=== PATIENT | female | born 1955 | race Hispanic/Latino ===

== ENCOUNTER 2018-12-15 09:48 | Inpatient (IN) | payer BC ==
[2018-12-15 10:17] LABS: Hemoglobin 8.5 g/dL (12.0-16.0); Mean Corpuscular HGB CONC 30.6 g/dL (32.0-36.0); Mean Corpuscular Hemoglobin 22.4 pg (27.0-31.0); Platelet Count 343 thou/uL (130-400); RBC Distribution Width 14.4 % (11.5-14.5); Red Blood Cell (RBC) Count 3.81 mill/uL (4.20-5.40); White Blood Cell (WBC) Count 8.3 thou/uL (4.8-10.8)
[2018-12-15 10:18] LABS: #Basophils 0.1 thou/uL (0.0-0.2); #Lymphocytes 2.2 thou/uL (1.20-3.40); #Monocytes 0.4 thou/uL (0.11-0.59); #Neutrophils 5.6 thou/uL (1.40-6.50); %Basophils 0.9 % (0.0-1.0); %Eosinophils 0.4 % (0.0-10.0); %Lymphocytes 26.6 % (21.0-51.0); %Monocytes 5.2 % (0.0-10.0); %Neutrophils 66.9 % (42.0-75.0)
[2018-12-15 10:41] LABS: ALT (SGPT) 11 U/L (8-55); AST (SGOT) 13 U/L (5-34); Albumin 3.7 g/dL (3.4-4.8); Alkaline Phosphatase 74 U/L (40-150); Anion Gap 7 mmol/L (10-20); BUN (Urea Nitrogen) 31 mg/dL (9.8-20.1); Bilirubin, Total 0.2 mg/dL (0.2-1.2); Calc. Creatinine Clearance 0 mL/min (70-130); Calcium 9.5 mg/dL (7.8-10.44); Carbon Dioxide 28 mmol/L (23-31); Chloride 108 mmol/L (98-107); Estimated GFR-MDRD 82; Globulin 3.3 g/dL (2.4-3.5); Glucose 182 mg/dL (80-115); Potassium 4.1 mmol/L (3.5-5.1); Sodium 139 mmol/L (136-145)
[2018-12-15 10:53] LABS: Hypochromia SLIGHT = 6-15 cells (100X) (0-5/hpf); MDiff Complete? YES; Microcytosis SLIGHT = 6-15 cells (100X) (0-5/hpf); Polychromasia SLIGHT = 2-3 cells (100X) (0-2/hpf)
[2018-12-15] MEDS ORDERED: Pantoprazole 40 MG VIAL ONE (11:13)
[2018-12-15] MEDS ORDERED: Pantoprazole 40 MG VIAL IVPB SCH (11:30)
[2018-12-15 11:32] LABS: INR-International Normal Ratio 1.1; PTT 28.6 SEC (22.9-36.1); Prothrombin Time 14.6 SEC (12.0-14.7)
[2018-12-15] MEDS ORDERED: Pantoprazole 80 MG in Sodium Chloride 0.9% 100 ML IVPB SCH (13:30)
[2018-12-15] MEDS ORDERED: Zolpidem Tartrate 5 MG TAB PO PRN (13:34)
[2018-12-15] MEDS ORDERED: Ondansetron ODT 4 MG TAB PO PRN (13:34)
[2018-12-15] MEDS ORDERED: Acetaminophen 325 MG TAB PO PRN (13:34)
[2018-12-15 14:12] VITALS: BMI 33.4
--- NOTE | 2018-12-15 15:07 | HP ---
The patient of Dr. Escoto. HISTORY OF PRESENT ILLNESS: The patient had nausea and vomiting this morning, went to her doctor's office. She was vomiting dark material, was having black stools. She was sent to the emergency room. She has continued to have black stools. She had no abdominal pain until this morning and it was severe for a while, but is now feeling better. She is weak, lightheaded. She has been taking no NSAIDs. She has had no previous episodes. PAST MEDICAL HISTORY: Pertinent only for hypertension and elevated cholesterol. CURRENT MEDICATIONS: 1. Losartan 50 mg a day. 2. Atorvastatin 20 mg a day. 3. Atenolol 100 mg a day. ALLERGIES: NO KNOWN DRUG ALLERGIES. PAST SURGICAL HISTORY: 1. Right knee surgery. 2. Bilateral bunionectomy. FAMILY HISTORY: No GI bleeding. Has a brother and a son with diabetes, and her mother had hypertension. SOCIAL HISTORY: . Full code status. Two daughters at bedside are next of kin. Never smoked. Does not drink any alcohol. REVIEW OF SYSTEMS: GENERAL: No fever, chills, sweats, or headache. EYES: No double vision, blurred vision, or flashing light. EARS, NOSE, AND THROAT: No ear pain or drainage. No nasal bleeding. No trouble swallowing. CARDIAC: She has had a little aching in her chest with this, nonpleuritic. No pressure or chest pain. No orthopnea. No paroxysmal nocturnal dyspnea. RESPIRATIONS: No cough, wheezing, or asthma. GASTROINTESTINAL: See present illness. GENITOURINARY: No hematuria, dysuria, or nocturia. MUSCULOSKELETAL: She has aches and pains in her joints of her legs. She has taken NSAIDs in the past, but none any much. She has been taking Tylenol instead. She has had no swelling in her legs. NEUROLOGICAL: No strokes, seizures, or focal weakness. PSYCHIATRIC: No anxiety or depression. SKIN: No bruises, bleeding, or rash. HEME/LYMPH: No tender or swollen lymph nodes in the axilla, inguinal, or cervical area. PSYCHIATRIC: She is alert, cooperative, pleasant, Singaporean-speaking lady. She has several children at bedside do interpret for. PHYSICAL EXAMINATION: VITAL SIGNS: Blood pressure 98/67, pulse 66, respirations 18, temperature 97.6. HEAD, EYES, EARS, NOSE, AND THROAT: Reveal pupils are equal, round, and reactive. Extraocular movements are intact. Sclerae are white. Tympanic membranes, clear. Nose, clear. Oral mucous membranes are wet. Dental hygiene is good. NECK: No jugular venous distention, adenopathy, or thyromegaly. CHEST: Clear to auscultation and percussion. HEART: Regular rate and rhythm. First and second heart sounds are clear. There are no murmurs or gallops. ABDOMEN: Soft. Bowel sounds are normal. There is no hepatosplenomegaly. No tenderness. No masses. No bruits. EXTREMITIES: Reveal no cyanosis, clubbing, or edema. PULSES: Carotid, radial, femoral, and dorsalis pedis pulses intact and symmetric. SKIN: Warm and dry without bruises or rash. HEME/LYMPH: Reveals no tender or swollen lymph nodes in the axilla, inguinal, or cervical area. DIAGNOSTIC DATA: Chest x-ray has not been done, we will order one. No EKG available, we will order one. LABORATORY DATA: The emesis is positive for occult blood. Hemoglobin is 8.5 with microcytic, microchromic indices; platelet count 343,000; white count 8.3. INR is 1.1. Comprehensive metabolic profile shows blood sugar of 132, BUN of 31, creatinine 0.7, CO2 of 28, chloride 108, potassium 4.1, sodium 139. Liver function tests normal. ASSESSMENT AND PLAN: 1. Anemia, acute blood loss. 2. Upper GI bleeding. 3. Hypertension. 4. Dyslipidemia. 5. Possible iron deficiency. The patient will be started on IV fluids, made n.p.o., received Protonix 40 mg IV q.12. Gastroenterology has been called for probable upper GI endoscopy. We will hold antihypertensives for now. Serial hemoglobin will be done. She will be transfused for hemoglobin less than 7. Job ID: [id number]
[2018-12-15] MEDS: Sodium Chloride 0.9% 1,000 ML IV SCH ×2 (15:40→19:51)
[2018-12-15] MEDS ORDERED: Lidocaine 1% PF 5 ML VIAL ONE (16:15)
[2018-12-15] MEDS ORDERED: PROPOFOL 200 MG/20 ML VIAL ONE (16:15)
--- NOTE | 2018-12-15 16:58 | CON ---
DATE OF CONSULTATION: 12/15/2018 REASON FOR CONSULTATION: Upper GI bleed. HISTORY OF PRESENT ILLNESS: Ms. Fry is a 63-year-old female, who is generally healthy other than having high blood pressure, presented to the ER this morning after having coffee-grounds emesis. She was on a way to baby-sit her granddaughter, when she felt ill with subsequent vomiting of dark black material and coffee-ground. She became lightheaded at that time. She presented to her primary care physician's office, they subsequently directed her to the emergency room. While on route to the ER, she did have one more episode of coffee-ground emesis. On further questioning, she had a bout of melenic stools yesterday and this morning. In the ER, she did have epigastric pain, but has since resolved. Currently, she is stable without any nausea, vomiting, or abdominal pain. She denies having had any previous peptic ulcer disease or history of upper GI bleed. Reportedly, she had an upper endoscopy done 3 to 4 years ago according to her daughters. Her GI review of system was otherwise unremarkable. Up until this event, her appetite had been normal without any trouble eating. There is no nausea, vomiting, abdominal pain, or altered bowel function. PAST MEDICAL HISTORY: 1. Hypertension. 2. Hyperlipidemia. 3. Knee surgery. ALLERGIES: NO KNOWN DRUG ALLERGIES. MEDICATIONS: Include atorvastatin, losartan, and atenolol. SOCIAL HISTORY: The patient lives with her son. Has no tobacco or alcohol usage. FAMILY HISTORY: Negative for any known GI problem, liver disease, or GI malignancy. REVIEW OF SYSTEMS: A 10-point review of systems did not show any other pertinent positives or negatives. PHYSICAL EXAMINATION: VITAL SIGNS: Her temperature is 97.4, blood pressure 107/73, and pulse 99. GENERAL: She is alert, in no distress. HEENT: Shows anicteric sclerae. Oropharynx is clear and moist. NECK: Supple. CV: Shows normal S1 and S2. Regular rate and rhythm. CHEST: Shows a breath sounds. ABDOMEN: Mildly protuberant, but no distention or tympany. She has active bowel sounds. No tenderness. EXTREMITIES: Shows no edema. LABORATORY DATA: WBCs 8.3, hemoglobin 8.5, hematocrit 27.9, platelet count of 343. Electrolytes within normal range. Creatinine 0.72, BUN of 31. INR is 1.1, PTT 28.6. ASSESSMENT: 1. Likely upper gastrointestinal bleed with presenting symptoms of coffee-ground emesis and melenic stool over the last 24 hours. Currently, she is hemodynamically stable with normal vitals. Blood count does show anemia. However, she does have microcytosis suggesting possibility of a chronic component. 2. Anemia, likely of acute blood loss. RECOMMENDATIONS: 1. Upper endoscopy to elucidate source of bleeding control if necessary. 2. Monitor and trend her blood count trend, transfuse if hemoglobin less than 7. 3. Further recommendation to follow pending above findings. Job ID: [id number]
[2018-12-15] MEDS ORDERED: Promethazine HCl 25 MG/ML VIAL SLOW IVP PRN (17:58)
[2018-12-15] MEDS ORDERED: Promethazine HCl 25 MG/ML VIAL IM PRN (17:58)
[2018-12-15] MEDS ORDERED: Ondansetron HCl/PF 4 MG/2 ML Vial IVP PRN (17:58)
--- NOTE | 2018-12-15 18:38 | OP ---
DATE OF PROCEDURE: 12/15/2018 PROCEDURE: Esophagogastroduodenoscopy. PREMEDICATION: Given by Anesthesiology Department. PRE PROCEDURE DIAGNOSES: Coffee-grounds emesis and melena. POSTPROCEDURE DIAGNOSES: 1. Large 10 cm length hiatal hernia. 2. Markedly erythematous gastric lining at hernia waist, otherwise normal upper endoscopy. 3. No source of bleeding identified. DESCRIPTION OF PROCEDURE: Written consents were obtained prior to procedure. After adequate sedation, forward-viewing endoscope was advanced down the hypopharynx under direct vision to the third portion of duodenum. The duodenum including the bulb appeared normal. The pylorus is patent. The gastric body appeared normal. Retroflexion showed a large hiatal hernia. The gastric narrowing appeared at 40 cm from the incisors. The GE junction including Z-line was located at 30 cm from the incisors. Within the stomach on retroflexion, there was marked erythema involving the mucosa straddling the hiatal hernia ways. Close inspection did not show any ulcerations or mucosal abnormality. The hernia sac itself appeared normal. GE junction showed variable Z-line, but no other abnormality. The lower, mid, and upper esophagus appeared normal. Blood was not encountered during this exam. No focal source of bleeding was identified. ASSESSMENT: 1. 10 cm length hiatal hernia with gastric ways at 40 cm and GE junction at 30 cm from the incisors. 2. Mucosal erythema at the hiatal hernia waist. 3. Otherwise normal upper endoscopy without any source of bleeding. RECOMMENDATIONS: 1. Advance diet. 2. Pantoprazole 40 mg p.o. daily. 3. Outpatient colonoscopy given her microcytic component to her anemia. Job ID: [id number]
[2018-12-15] MEDS: Pantoprazole 40 MG VIAL IVP SCH (19:52)
[2018-12-16] MEDS: Sodium Chloride 0.9% 1,000 ML IV SCH ×3 (05:24→14:37)
[2018-12-16 07:27] LABS: Hemoglobin 6.8 g/dL (12.0-16.0); Mean Corpuscular HGB CONC 31.4 g/dL (32.0-36.0); Mean Corpuscular Hemoglobin 22.4 pg (27.0-31.0); Mean Corpuscular Volume 71.3 fL (78.0-98.0); Mean Platelet Volume 9.1 fL (7.4-10.4); Platelet Count 273 thou/uL (130-400); RBC Distribution Width 14.5 % (11.5-14.5); Red Blood Cell (RBC) Count 3.02 mill/uL (4.20-5.40); White Blood Cell (WBC) Count 5.4 thou/uL (4.8-10.8)
[2018-12-16 07:43] LABS: Anion Gap 10 mmol/L (10-20); BUN (Urea Nitrogen) 15 mg/dL (9.8-20.1); Calc. Creatinine Clearance 104 mL/min (70-130); Calcium 8.3 mg/dL (7.8-10.44); Carbon Dioxide 24 mmol/L (23-31); Chloride 110 mmol/L (98-107); Estimated GFR-MDRD Greater than 90; Glucose 108 mg/dL (80-115); Potassium 3.6 mmol/L (3.5-5.1); Sodium 140 mmol/L (136-145)
[2018-12-16] MEDS: Pantoprazole 40 MG VIAL IVP SCH ×2 (08:06→20:17)
--- NOTE | 2018-12-16 10:04 | PDOC.PN ---
- Subjective Encounter Start Date: 12/16/18 Encounter Start Time: 10:02 Patient seen and examined for GI bleeding. No new hematemesis/Melena. No new complaints. No overnight events - Objective Resuscitation Status - Order Detail: 12/15/18 13:31 Resuscitation Status Routine Resuscitation Status: FULL: Full Resuscitation MAR Reviewed: Yes Vital Signs & Weight: Vital Signs (12 hours) Temp Pulse Resp BP Pulse Ox 12/16/18 07:29 98.7 F 84 16 137/78 98 Weight Weight 159 lb 12.8 oz I&O: 12/15/18 12/16/18 12/17/18 06:59 06:59 06:59 Intake Total 1331 0 Balance 1331 0 Result Diagrams: 12/16/18 06:36 12/16/18 06:36 Phys Exam - Physical Examination Constitutional: NAD Respiratory: no wheezing, no rhonchi Cardiovascular: RRR, no rub Gastrointestinal: soft, non-tender, positive bowel sounds Musculoskeletal: no edema Neurological: moves all 4 limbs Dx/Plan - Plan DVT proph w/SCDs IMPRESSION UGI bleeding Acute blood loss Anemia HTN HLD Obesity BMI 33.4 Hiatal Hernia GERD PLAN: Cont IV PPI s/p EGD Transfuse 1 unit PRBC Resume home meds once confirmed AM labs Check iron profile Reduce IV fluid Review of Systems - Review of Systems Respiratory: negative: Cough, Dry, Shortness of Breath, Hemoptysis, SOB with Excertion, Pleuritic Pain, Sputum, Wheezing Cardiovascular: negative: chest pain, palpitations, orthopnea, paroxysmal nocturnal dyspnea, edema, light headedness, other - Medications/Allergies Allergies/Adverse Reactions: Allergies Allergy/AdvReac Type Severity Reaction Status Date / Time No Known Allergies Allergy Verified 12/15/18 14:16 Medications: Current Medications Acetaminophen (Tylenol) 650 mg PO Q4H PRN PRN Reason: Headache/Fever/Mild Pain (1-3) Sodium Chloride (Normal Saline 0.9%) 1,000 mls @ 50 mls/hr IV .Q20H REFUGIO Ondansetron HCl (Zofran Odt) 4 mg PO Q6H PRN PRN Reason: Nausea/Vomiting Pantoprazole Sodium (Protonix) 40 mg IVP Q12HR REFUGIO Last Admin: 12/16/18 08:06 Dose: 40 mg Sodium Chloride (Flush - Normal Saline) 10 ml IVF Q12HR REFUGIO Last Admin: 12/16/18 08:06 Dose: 10 ml Sodium Chloride (Flush - Normal Saline) 10 ml IVF PRN PRN PRN Reason: Saline Flush Zolpidem Tartrate (Ambien) 5 mg PO HSPRN PRN PRN Reason: Insomnia
[2018-12-16 10:30] LABS: Iron 11 ug/dL (50-170); Iron Binding Capacity, Total 313 mcg/dL (265-497)
[2018-12-16] MEDS ORDERED: GoLYTELY 4,000 ml Bottle PO SCH (11:30)
--- NOTE | 2018-12-16 11:56 | PRG ---
DATE OF SERVICE: 12/16/2018 SUBJECTIVE: The patient feels fine. She denies any nausea, vomiting, or abdominal pain. No bowel movement or melenic stool since admission. PHYSICAL EXAMINATION: VITAL SIGNS: Temperature is 98.7, blood pressure 137/78, pulse of 84. GENERAL: She is alert, no distress. HEENT: Exam shows anicteric sclerae. Oropharynx is clear and moist. CV: Exam shows normal S1, S2. Regular rate and rhythm. CHEST: Exam shows a breath sounds. ABDOMEN: Mildly protuberant, but soft and nontender. She has active bowel sounds. EXTREMITIES: Exam shows no edema. LABORATORY DATA: Hemoglobin 6.8, WBC 5.4, platelet count of 273 (hemoglobin 8.5 yesterday). Iron is 11, TIBC 331, ferritin 8.8. ASSESSMENT: 1. Clinical symptoms of upper gastrointestinal bleed (coffee-grounds emesis and melena) with negative EGD for any source of active bleeding. Only a hiatal hernia was noted with indurated gastric mucosa at the hiatal hernia . 2. Acute on chronic anemia. She has underlying iron deficiency anemia with low ferritin and microcytosis. Acute GI blood loss component on top of it. RECOMMENDATION: 1. Continue pantoprazole. 2. We will proceed with colonoscopy given her concurrent underlying iron deficiency anemia. Prep today to follow colonoscopy in a.m. 3. The patient will likely be able to be discharged after colonoscopy tomorrow. Job ID: [id number]
[2018-12-16] MEDS ORDERED: Iron, Sodium Ferric Gluconate 250 MG in Sodium Chloride 0.9% 250 ML 250 ML IVPB SCH (13:00)
[2018-12-17 05:45] LABS: Hemoglobin 8.1 g/dL (12.0-16.0); Platelet Count 263 thou/uL (130-400)
[2018-12-17] MEDS: Sodium Chloride 0.9% 1,000 ML IV SCH (07:06)
[2018-12-17] MEDS: Pantoprazole 40 MG VIAL IVP SCH (08:30)
[2018-12-17] MEDS ORDERED: Iron Sucrose Complex 200 MG in Sodium Chloride 0.9% 250 ML 250 ML IVPB SCH (09:45)
--- NOTE | 2018-12-17 09:52 | PDOC.PN ---
- Subjective Encounter Start Date: 12/17/18 Encounter Start Time: 07:40 -: old records requested/rev Patient seen and examined. No new complaints. No overnight events - Objective Resuscitation Status - Order Detail: 12/15/18 13:31 Resuscitation Status Routine Resuscitation Status: FULL: Full Resuscitation MAR Reviewed: Yes Vital Signs & Weight: Vital Signs (12 hours) Temp Pulse Resp BP Pulse Ox 12/17/18 07:53 97.9 F 72 16 129/81 96 12/17/18 05:05 98.1 F 78 16 125/77 99 12/17/18 01:07 97.8 F 78 16 138/80 9 L Weight Weight 159 lb 12.8 oz I&O: 12/16/18 12/17/18 12/18/18 06:59 06:59 06:59 Intake Total 1331 7147 Balance 1331 7147 Result Diagrams: 12/17/18 04:56 12/16/18 06:36 Phys Exam - Physical Examination Constitutional: NAD HEENT: PERRLA, moist MMs, sclera anicteric Neck: no JVD, supple Respiratory: no wheezing, no rales, no rhonchi Cardiovascular: RRR, no significant murmur, no rub Gastrointestinal: soft, non-tender, no distention, positive bowel sounds Musculoskeletal: no edema, pulses present Neurological: non-focal, normal sensation Lymphatic: no nodes Psychiatric: normal affect, A&O x 3 Skin: no rash, normal turgor Dx/Plan (1) Anemia due to acute blood loss Code(s): D62 - ACUTE POSTHEMORRHAGIC ANEMIA Status: Acute (2) GI bleed Code(s): K92.2 - GASTROINTESTINAL HEMORRHAGE, UNSPECIFIED Status: Acute (3) GERD (gastroesophageal reflux disease) Code(s): K21.9 - GASTRO-ESOPHAGEAL REFLUX DISEASE WITHOUT ESOPHAGITIS Status: Chronic (4) HTN (hypertension) Code(s): I10 - ESSENTIAL (PRIMARY) HYPERTENSION Status: Chronic (5) Hiatal hernia Code(s): K44.9 - DIAPHRAGMATIC HERNIA WITHOUT OBSTRUCTION OR GANGRENE Status: Chronic (6) Hyperlipidemia Code(s): E78.5 - HYPERLIPIDEMIA, UNSPECIFIED Status: Chronic (7) Obesity (BMI 30.0-34.9) Code(s): E66.9 - OBESITY, UNSPECIFIED Status: Chronic - Plan cont current plan of care, plan discussed w/ family * medication reviewed as below * symptomatic treatment * see discharge summery * venofer before discharge and colonoscopy today. Review of Systems - Review of Systems ENT: negative: Ear Pain, Ear Discharge, Nose Pain, Nose Discharge, Nose Congestion, Mouth Pain, Mouth Swelling, Throat Pain, Throat Swelling, Other Respiratory: negative: Cough, Dry, Shortness of Breath, Hemoptysis, SOB with Excertion, Pleuritic Pain, Sputum, Wheezing Cardiovascular: negative: chest pain, palpitations, orthopnea, paroxysmal nocturnal dyspnea, edema, light headedness, other Gastrointestinal: negative: Nausea, Vomiting, Abdominal Pain, Diarrhea, Constipation, Melena, Hematochezia, Other Genitourinary: negative: Dysuria, Frequency, Incontinence, Hematuria, Retention , Other Musculoskeletal: negative: Neck Pain, Shoulder Pain, Arm Pain, Back Pain, Hand Pain, Leg Pain, Foot Pain, Other - Medications/Allergies Allergies/Adverse Reactions: Allergies Allergy/AdvReac Type Severity Reaction Status Date / Time No Known Allergies Allergy Verified 12/15/18 14:16 Medications: Current Medications Acetaminophen (Tylenol) 650 mg PO Q4H PRN PRN Reason: Headache/Fever/Mild Pain (1-3) Sodium Chloride (Normal Saline 0.9%) 1,000 mls @ 50 mls/hr IV .Q20H [facility] Last Admin: 12/17/18 07:06 Dose: Not Given Iron Sucrose 200 mg/ Sodium (Chloride) 260 mls @ 125 mls/hr IVPB ONE REFUGIO Ferric Sodium Gluconate Complex 250 mg/ Sodium Chloride 120 mls @ 60 mls/hr IVPB 1000 [facility] Stop: 12/17/18 11:59 Ondansetron HCl (Zofran Odt) 4 mg PO Q6H PRN PRN Reason: Nausea/Vomiting Pantoprazole Sodium (Protonix) 40 mg IVP Q12HR [facility] Last Admin: 12/17/18 08:30 Dose: 40 mg Sodium Chloride (Flush - Normal Saline) 10 ml IVF Q12HR [facility] Last Admin: 12/17/18 08:30 Dose: 10 ml Sodium Chloride (Flush - Normal Saline) 10 ml IVF PRN PRN PRN Reason: Saline Flush Zolpidem Tartrate (Ambien) 5 mg PO HSPRN PRN PRN Reason: Insomnia
[2018-12-17] MEDS ORDERED: Iron, Sodium Ferric Gluconate 250 MG in Sodium Chloride 0.9% 100 ML IVPB SCH (10:00)
[2018-12-17] MEDS ORDERED: Iron, Sodium Ferric Gluconate 250 MG in Sodium Chloride 0.9% 250 ML 250 ML IVPB SCH (10:15)
--- NOTE | 2018-12-17 10:59 | DIS ---
DATE OF ADMISSION: 12/15/2018 DATE OF DISCHARGE: 12/17/2018 PRIMARY CARE PHYSICIAN: Dr. Escoto. DISCHARGE DISPOSITION: Home. PRIMARY DISCHARGE DIAGNOSES: 1. Upper gastrointestinal bleed. 2. Anemia due to acute blood loss. 3. Symptomatic chronic iron deficiency anemia. SECONDARY DISCHARGE DIAGNOSES: Obesity with BMI 33, hypertension, dyslipidemia, hiatal hernia, gastroesophageal reflux disease. PRIMARY PROCEDURE/OPERATION: Upper endoscopy showed hiatal hernia. Colonoscopy is planned for today, result is pending. RADIOLOGICAL INVESTIGATION: None. SIGNIFICANT LABORATORY DATA: Hemoglobin 8.1. INR 1.1. Creatinine 0.65. Ferritin 8.8. LFT normal. DISCHARGE MEDICATIONS: 1. Lipitor 40 mg p.o. at bedtime. 2. Cozaar 100 mg p.o. daily. 3. Ferrous sulfate 325 mg p.o. daily. 4. Hydrochlorothiazide 12.5 mg daily. 5. Protonix 40 mg p.o. daily. CONTRAINDICATION: None. CODE STATUS: Full code. INPATIENT CAREGIVERS NON MEDICAL: Dr. Broderick was consulted while in hospital. TEST RESULTS PENDING ON DISCHARGE: Colonoscopy. DISCHARGE PLAN: Posthospital, the patient will follow up with Dr. Kandy Escoto and Dr. Broderick as instructed. HOSPITAL COURSE: A 63-year-old female with above-mentioned medical problem, who was admitted by Dr. Franco. Please see his H and P for further details. The patient was admitted for symptomatic anemia. She was having black tarry stool. She was found with significant anemia. Her hemoglobin on admission 8.5, which dropped to 6.8. She was given 1 unit of blood transfusion. She was given iron infusion while in hospital. Subsequently, her hemoglobin improved to 8.1. She does have iron deficiency anemia. She underwent upper endoscopy by Dr. Broderick and found with hiatal hernia. For further evaluation, the patient is planned for colonoscopy today. The patient is completely asymptomatic today and she wants to go home after procedure. The patient is overall medically stable. Dietary education given. We are giving her some Protonix on discharge as well as we are giving her Venofer before discharge. The patient will be discharged later on after colonoscopy if her gastroenterology okay. The patient is seen and examined at bedside today. Please see my progress note from today for further detail. Job ID: [id number]
[2018-12-17] MEDS ORDERED: PROPOFOL 200 MG/20 ML VIAL ONE (16:28)
[2018-12-17] MEDS ORDERED: Lidocaine 1% PF 5 ML VIAL ONE (16:28)
[2018-12-17] MEDS ORDERED: Promethazine HCl 25 MG/ML VIAL SLOW IVP PRN (16:42)
[2018-12-17] MEDS ORDERED: Promethazine HCl 25 MG/ML VIAL IM PRN (16:42)
[2018-12-17] MEDS ORDERED: Ondansetron HCl/PF 4 MG/2 ML Vial IVP PRN (16:42)
--- NOTE | 2018-12-17 16:50 | OP ---
DATE OF PROCEDURE: 12/17/2018 STORE SHOPPER SURGEON: None. PROCEDURE PERFORMED: Colonoscopy, diagnostic. INDICATION: Chronic microcytic anemia. This is the patient's first colonoscopy. MEDICATIONS: See Anesthesia record. FINDINGS: After discussion of the risks, benefits, and alternatives of the procedure, informed consent was obtained and witnessed. Pre-endoscopic cardiopulmonary examination was satisfactory. Time-out was performed before sedation was achieved. Sedation was achieved with Anesthesia assistance in the Endoscopy Unit. Digital rectal exam was performed, which was unremarkable. A Pentax adult colonoscope was inserted into the anus and passed forward to the cecum in the usual fashion. The cecal base was identified by the appendiceal orifice as well as the ileocecal valve. The terminal ileum was intubated and the ileal mucosa appeared normal. The colonoscope was then slowly withdrawn in a gradual and circumferential manner with careful examination of the entire colonic mucosa. The quality of the prep was good. The colonic mucosa appeared normal throughout. Retroflexion of the rectum demonstrated some internal hemorrhoids. The colonoscope was completely withdrawn and the patient allowed to recover. The patient tolerated the procedure well. There were no immediate postprocedure complications. IMPRESSION: 1. Internal hemorrhoids. 2. Otherwise, normal colonoscopy to the terminal ileum. RECOMMENDATIONS: 1. Repeat colonoscopy in 10 years for screening. 2. Okay for hospital discharge from a GI perspective. Job ID: [id number]
[2018-12-17 20:34] VITALS: BP 138/62; TEMP 97.9
== END 2018-12-17 20:04 | disposition home or self-care (01) | DRG 378 ==
LOC: ERS 09:48 → T4-A 12:00
PROVIDERS: ADMIT Internal Medicine; ATTEND Internal Medicine
PROC: 0DJ08ZZ Inspection of Upper Intestinal Tract, Via Natural or Artificial Opening Endoscopic (ICD-10-PCS; principal; 2018-12-15)
PROC: 30233N1 Transfusion of Nonautologous Red Blood Cells into Peripheral Vein, Percutaneous Approach (ICD-10-PCS; 2018-12-15)
PROC: 0DJD8ZZ Inspection of Lower Intestinal Tract, Via Natural or Artificial Opening Endoscopic (ICD-10-PCS; 2018-12-17)
DX: K92.2 Gastrointestinal hemorrhage, unspecified (principal); D62 Acute posthemorrhagic anemia; I10 Essential (primary) hypertension; K44.9 Diaphragmatic hernia without obstruction or gangrene; E66.9 Obesity, unspecified; Z68.33 Body mass index [BMI] 33.0-33.9, adult; K21.9 Gastro-esophageal reflux disease without esophagitis; D50.9 Iron deficiency anemia, unspecified; K64.8 Other hemorrhoids
CPT/HCPCS: 36415; 36430; 80048; 80053; 82271; 82274; 82728; 83540; 83550; 85014; 85018; 85025; 85027; 85049; 85610; 85730; 86850; 86900; 86901; 96360; 96374; C9113; J2001; J2704; J2916; J3490; J7050; P9016

== ENCOUNTER 2019-02-04 11:28 | Outpatient (CLI) | payer BC ==
[2019-02-04 14:08] LABS: #Basophils 0.1 thou/uL (0.0-0.2); #Eosinphils 0.1 thou/uL (0.0-0.7); #Lymphocytes 1.9 thou/uL (1.20-3.40); #Monocytes 0.4 thou/uL (0.11-0.59); #Neutrophils 2.2 thou/uL (1.40-6.50); %Basophils 1.1 % (0.0-1.0); %Eosinophils 2.4 % (0.0-10.0); %Lymphocytes 40.5 % (21.0-51.0); %Monocytes 7.9 % (0.0-10.0); %Neutrophils 48.1 % (42.0-75.0); Hemoglobin 11.8 g/dL (12.0-16.0); Mean Corpuscular HGB CONC 33.1 g/dL (32.0-36.0); Mean Corpuscular Volume 81.6 fL (78.0-98.0); Mean Platelet Volume 9.9 fL (7.4-10.4); Platelet Count 242 thou/uL (130-400); RBC Distribution Width 17.7 % (11.5-14.5); Red Blood Cell (RBC) Count 4.35 mill/uL (4.20-5.40); White Blood Cell (WBC) Count 4.6 thou/uL (4.8-10.8)
[2019-02-04 14:26] LABS: Anion Gap 11 mmol/L (10-20); BUN (Urea Nitrogen) 14 mg/dL (9.8-20.1); Calc. Creatinine Clearance 0 mL/min (70-130); Calcium 9.6 mg/dL (7.8-10.44); Carbon Dioxide 26 mmol/L (23-31); Chloride 105 mmol/L (98-107); Estimated GFR-MDRD 84; Glucose 103 mg/dL (80-115); Potassium 3.9 mmol/L (3.5-5.1); Sodium 138 mmol/L (136-145)
--- NOTE | 2019-02-05 09:21 | EKG ---
Test Reason : Blood Pressure : / mmHG Vent. Rate : 066 BPM Atrial Rate : 066 BPM P-R Int : 164 ms QRS Dur : 094 ms QT Int : 442 ms P-R-T Axes : 019 -19 008 degrees QTc Int : 463 ms Normal sinus rhythm Voltage criteria for left ventricular hypertrophy Abnormal ECG When compared with ECG of 25-DEC-2014 02:02, No significant change was found Confirmed by ANTOINE SOLO, . S. (4) on 02/05/2019 9:21:05 AM Referred By: STEPHEN Confirmed By:DR. Christine SCHULTZ MD
== END 2019-02-04 11:29 | disposition home or self-care (01) ==
LOC: LABBT 11:28
PROVIDERS: ATTEND Surgery
DX: Z01.818 Encounter for other preprocedural examination (principal); K44.9 Diaphragmatic hernia without obstruction or gangrene
CPT/HCPCS: 80048; 85025; 93005; 93010

== ENCOUNTER 2019-02-10 08:11 | Inpatient (IN) | payer BC ==
[2019-02-10] MEDS ORDERED: Fentanyl 100 MCG/2 ML VIAL ONE ×3 (09:22→12:28)
[2019-02-10] MEDS ORDERED: Midazolam HCl 2 mg/2 ml Vial ONE (09:22)
[2019-02-10] MEDS ORDERED: Bupivacaine/Epinephrine 0.25% 30 ML VIAL ONE (09:39)
[2019-02-10] MEDS ORDERED: Promethazine HCl 25 MG/ML VIAL IM PRN ×3 (12:03→12:12)
[2019-02-10] MEDS ORDERED: Promethazine HCl 25 MG/ML VIAL SLOW IVP PRN (12:03)
[2019-02-10] MEDS ORDERED: Ondansetron HCl/PF 4 MG/2 ML Vial IVP PRN (12:03)
[2019-02-10] MEDS ORDERED: Dextrose 50% Abboject 50 ML SYRINGE SLOW IVP PRN (12:06)
[2019-02-10] MEDS ORDERED: hydrALAZINE 20 MG/ML VIAL SLOW IVP PRN (12:06)
[2019-02-10] MEDS ORDERED: Ondansetron PF 4 MG/2 ML Vial IVP PRN ×2 (12:06→12:12)
[2019-02-10] MEDS ORDERED: Dextrose 5% in Water 1,000 ML IV PRN (12:06)
[2019-02-10] MEDS ORDERED: diphenhydrAMINE 50 MG/ML VIAL IVP PRN (12:12)
[2019-02-10] MEDS ORDERED: Naloxone HCl 0.4 mg/ml Vial IV PRN (12:12)
[2019-02-10] MEDS ORDERED: fentaNYL Citrate/PF 2,000 MCG in Sodium Chloride 0.9% 60 ML IV PRN (12:12)
[2019-02-10] MEDS ORDERED: diphenhydrAMINE 50 MG/ML VIAL IM PRN (12:12)
[2019-02-10] MEDS ORDERED: Ketorolac Tromethamine 30 MG/ML VIAL IVP PRN (12:12)
[2019-02-10] MEDS ORDERED: Zolpidem Tartrate 5 MG TAB PO PRN (12:12)
[2019-02-10] MEDS ORDERED: diphenhydrAMINE 25 MG CAP PO PRN (12:12)
[2019-02-10] MEDS ORDERED: Communication Order-Pharmacy FS SCH (12:15)
[2019-02-10] MEDS ORDERED: Sodium Chloride 0.9% (PF) 10 ML VIAL FS PRN (12:30)
[2019-02-10] MEDS ORDERED: Pantoprazole 40 MG VIAL IVP SCH ×2 (14:00)
[2019-02-10] MEDS ORDERED: Sodium Chloride 0.9% (PF) 10 ML VIAL FS SCH (14:00)
[2019-02-10] MEDS: Acetaminophen 1,000 MG in Premix Bag 1 BAG IVPB SCH ×2 (14:12→18:20)
[2019-02-10] MEDS: Sodium Chloride 0.9% 1,000 ML IV SCH (14:12)
--- NOTE | 2019-02-10 14:54 | OP ---
DATE OF PROCEDURE: 02/10/2019 PREOPERATIVE DIAGNOSIS: Paraesophageal hiatal hernia, large. POSTOPERATIVE DIAGNOSIS: Paraesophageal hiatal hernia, large. PROCEDURE PERFORMED: Laparoscopic hiatal hernia repair with Alley fundoplication. ANESTHESIA: General. ESTIMATED BLOOD LOSS: 50 mL. COMPLICATIONS: None. FINDINGS: Large hiatal hernia. Postop EGD shows no stenosis at the diaphragmatic hiatus or GE junction. DESCRIPTION OF PROCEDURE: The patient was taken to the operating room and laid supine on the operating room table. After general anesthetic was obtained, the arms and legs were double strapped to the table. She is placed in lithotomy split leg position. Her abdomen was prepped and draped in a sterile fashion. An OG tube was used to decompress the stomach. Left subcostal 5 mm Optiview trocar was placed and high-flow pneumoperitoneum was obtained. A right subcostal 5 mm port as well as lower abdominal 5 mm ports were placed in direct visualization. A camera port was placed just above the umbilicus. Short gastrics taken out of the body of stomach to left kayce of diaphragm. Left kayce posterior fundus was all dissected allowing the fundus to be brought back down into the abdominal cavity. Gastrohepatic ligament was opened. The right kayce was dissected as well. A circumferential dissection of the esophagus was performed bringing the GE junction and the fundus all back down to the abdominal cavity under no tension. A Chaffee drain was brought in the sterile field and passed behind the GE junction and a PDS Endoloop was used to hold it, retract stomach down. A 48 bougie was brought in and its tip left in the antrum of the stomach. Two posterior Ethibond sutures were placed with a tie knot system to close the defect. No anterior sutures were placed. The fundus of the stomach was able to be placed posterior to the GE junction and wrapped around to make a 360 degree wrap. There was no tension. No twist. A loose wrap was performed. The middle of the three sutures with the Ethibond and tie knot system was used. A small amount of the esophagus is taken in the body. The esophageal wall muscle was taken in the bite no injury to any intraabdominal structures. The bougie was removed. EGD scope was passed through esophagus stomach to the level of duodenum without obstruction. There was no injury. There was no evidence of significant stenosis at the diaphragmatic hiatus or the GE junction. No evidence of mucosal injury. EGD scope was used to decompress the stomach, it was pulled and removed beneath. The liver retractors removed under direct visualization without bleeding all incisions were irrigated. All incisions were infiltrated with local anesthetic. All ports were removed under direct visualization. Pneumoperitoneum was let down. A 4-0 Monocryl and Dermabond to close all skin incisions. The patient was sent to Recovery in stable condition. All instrument counts, needle counts, and lap counts were correct. Job ID: [id number]
[2019-02-10 16:43] VITALS: BMI 33.4
[2019-02-10] MEDS ORDERED: Enoxaparin Sodium 40 MG/0.4 ML SYRINGE SC SCH (21:00)
[2019-02-11] MEDS: Acetaminophen 1,000 MG in Premix Bag 1 BAG IVPB SCH ×2 (00:08→05:36)
[2019-02-11] MEDS: Sodium Chloride 0.9% 1,000 ML IV SCH (06:43)
--- NOTE | 2019-02-11 07:37 | PDOC.GSPN ---
Surgery Progress Note: Subj - Subjective Patient reports: pain well controlled, tolerating liquids well Narrative: Patient reports no pain at rest and minimal pain with ambulating and deep respirations. Denies N/V. Surgery Progress Note: Obj - Vital signs Vital signs: Vital Signs - Most Recent Temp Pulse Resp BP Pulse Ox 97.8 F 77 20 136/78 95 02/11/19 04:02/11/19 04:02/11/19 04:19 02/11/19 04:02/11/19 04:19 - Physical Exam General: no distress, no pain Cardiovascular: regular rate and rhythm Respiratory: clear to auscultation, normal respiratory effort Abdomen: soft, non tender, nondistended, positive bowel sounds Wound: healing well (Incision sites are dry and without erytehma or discharge.) Surgery Progress Note: A/P - Problem (1) Hiatal hernia Current Visit: No Code(s): K44.9 - DIAPHRAGMATIC HERNIA WITHOUT OBSTRUCTION OR GANGRENE Status: Chronic - Plan Plan: Patient is doing well and tolerating ambulation and liquids well. Plan to d/c this morning and f/u in 2 weeks in clinic. Patient informed to continue liquid diet and progress to soft solids before returning to normal diet over the next couple of weeks based on her ability to tolerate.
[2019-02-11 08:09] VITALS: BP 148/80; TEMP 97.6
[2019-02-11] MEDS ORDERED: Pantoprazole 40 MG VIAL IVP SCH (09:00)
[2019-02-11] MEDS ORDERED: Losartan/Hydrochlorothiazide 100 mg/25 mg Tablet PO SCH (09:00)
[2019-02-11] MEDS ORDERED: HYDROcodone/Acetaminophen 10/325 mg Tablet PO PRN ×2 (09:34→09:35)
--- NOTE | 2019-02-12 03:04 | DIS ---
DATE OF ADMISSION: 02/10/2019 DATE OF DISCHARGE: 02/11/2019 ADMIT DIAGNOSIS: Hiatal hernia, paraesophageal. DISCHARGE DIAGNOSIS: Hiatal hernia, paraesophageal. PROCEDURE: Laparoscopic hiatal hernia repair with fundoplication by Dr. Mckenna. CONDITION ON DISCHARGE: Improved. HOSPITAL COURSE: On postop day 1, the patient is doing well. She is tolerating a liquid diet. She is ambulatory. Her pain is well controlled. She will be discharged home. She will follow up with me in 2 weeks. She will continue her Protonix. Prescriptions for Lortab elixir and Zofran sent to her pharmacy. Job ID: [id number]
== END 2019-02-11 11:45 | disposition home or self-care (01) | DRG 328 ==
LOC: SDC 08:11 → SURG A 13:16
PROVIDERS: ADMIT Surgery; ATTEND Surgery
PROC: 0BQT4ZZ Repair Diaphragm, Percutaneous Endoscopic Approach (ICD-10-PCS; principal; 2019-02-10)
DX: K44.9 Diaphragmatic hernia without obstruction or gangrene (principal); I10 Essential (primary) hypertension; I25.10 Atherosclerotic heart disease of native coronary artery without angina pectoris; E11.9 Type 2 diabetes mellitus without complications; E78.5 Hyperlipidemia, unspecified; M19.90 Unspecified osteoarthritis, unspecified site; Z79.899 Other long term (current) drug therapy
CPT/HCPCS: C9113; J0131; J0690; J1650; J2250; J3010; J3490

== ENCOUNTER 2019-06-01 16:02 | Outpatient (CLI) | payer BC ==
--- NOTE | 2019-06-08 16:18 | MMO ---
Bilateral MAMMO Bilat Screen [facility]. CLINICAL HISTORY: Patient is 64 years old and is seen for screening. The patient has no family history of breast cancer. The patient has no personal history of cancer. VIEWS: The views performed were: bilateral craniocaudal with tomosynthesis and bilateral mediolateral oblique with tomosynthesis. FILMS COMPARED: The present examination has been compared to prior imaging studies performed at [facility] on 06/17/2011, 07/05/2014 and 10/20/2017. This study has been interpreted with the assistance of computer-aided detection. MAMMOGRAM FINDINGS: There are scattered fibroglandular densities. There are no suspicious masses, suspicious calcifications, or new areas of architectural distortion. IMPRESSION: THERE IS NO MAMMOGRAPHIC EVIDENCE OF MALIGNANCY. A ROUTINE FOLLOW-UP MAMMOGRAM IN 1 YEAR IS RECOMMENDED. THE RESULTS OF THIS EXAM WERE SENT TO THE PATIENT. ACR BI-RADS Category 1 - Negative MAMMOGRAPHY NOTE: 1. A negative mammogram report should not delay a biopsy if a dominant of clinically suspicious mass is present. 2. Approximately 10% to 15% of breast cancers are not detected by mammography. 3. Adenosis and dense breasts may obscure an underlying neoplasm. Reported by: ELYSSA HANLEY MD Electonically Signed: [id number]
== END 2019-06-01 16:03 | disposition home or self-care (01) ==
LOC: BICMAMMO 16:02
PROVIDERS: ATTEND Family Medicine
DX: Z12.31 Encounter for screening mammogram for malignant neoplasm of breast (principal)
CPT/HCPCS: 77063; 77067